=== PATIENT | male | born 1950 | race Caucasian/White ===

== ENCOUNTER → 2025-01-15 | Outpatient (CLI) | payer MEDICARE, BC, SELFPAY ==
[2025-01-15 11:39] LABS: Albumin, Serum 4.8 gm/dL (3.4-4.8); Anion Gap 9 (7-16); BUN/Creatinine Ratio 15 Ratio (12-20); Blood Urea Nitrogen 18 mg/dL (9-23); Calcium 9.9 mg/dL (8.3-10.6); Calcium (Corrected) 9.9 mg/dL (8.5-10.1); Carbon Dioxide 27.7 mMol/L (20.0-31.0); Chloride 108 mMol/L (98-107); Cholesterol 234 mg/dL (132-200); Creatinine (Component) 1.2 mg/dL (0.6-1.3); Glucose 110 mg/dL (74-106); HDL Cholesterol 58 mg/dL (40-60); LDL Cholesterol,Calculated 137 mg/dL (0-130); Osmolality,Calculated 291 (275-295); Phosphorous 3.2 mg/dL (2.4-5.1); Sodium 145 mMol/L (136-145); Triglycerides 197 mg/dL (30-150); eGFR > 60 See Note
[2025-01-19 15:32] LABS: PSA, Free 0.64 ng/mL; PSA, Total 4.7 ng/mL (< OR = 4.0)
[2025-01-22 06:40] LABS: PSA, % Free 14 % (calc) (>25); Testosterone, Free,Dialysis 62.8 pg/mL (30.0-135.0); Testosterone, Total, Dialysis 599 ng/dL (250-1100)
== END | disposition home or self-care (01) ==
LOC: COPL 09:49
PROVIDERS: PCP Internal Medicine Cardiovascular Disease; Referring Provider Internal Medicine Cardiovascular Disease; Visit Provider Internal Medicine Cardiovascular Disease
DX: I25.10 Atherosclerotic heart disease of native coronary artery without angina pectoris (principal); E78.00 Pure hypercholesterolemia, unspecified; I35.1 Nonrheumatic aortic (valve) insufficiency; I34.0 Nonrheumatic mitral (valve) insufficiency
CPT/HCPCS: 36415; 80061; 80069; 84153; 84154; 84402; 84403

== ENCOUNTER → 2025-03-13 | Outpatient (CLI) | payer MEDICARE, BC, SELFPAY ==
[2025-03-13 11:18] LABS: Cardiac Risk Estimate 4.4 RATIO (4.0-6.7); Cholesterol 211 mg/dL (132-200); HDL Cholesterol 48 mg/dL (40-60); LDL Cholesterol,Calculated 130 mg/dL (0-130); Triglycerides 166 mg/dL (30-150)
[2025-03-16 22:04] LABS: PSA, Free 0.55 ng/mL; PSA, Total 3.9 ng/mL (< OR = 4.0)
[2025-03-19 06:42] LABS: PSA, % Free 14 % (calc) (>25); Testosterone, Free,Dialysis 72.9 pg/mL (30.0-135.0); Testosterone, Total, Dialysis 520 ng/dL (250-1100)
== END | disposition home or self-care (01) ==
LOC: COPL 09:32
PROVIDERS: PCP Internal Medicine; Referring Provider Internal Medicine Cardiovascular Disease; Visit Provider Internal Medicine Cardiovascular Disease
DX: I25.10 Atherosclerotic heart disease of native coronary artery without angina pectoris (principal); E78.00 Pure hypercholesterolemia, unspecified
CPT/HCPCS: 36415; 80061; 84153; 84154; 84402; 84403